=== PATIENT | female | born 1945 | race Asian ===

== ENCOUNTER → 2017-05-01 | Outpatient (CLI) | payer MEDICARE ==
[~2017-05-01] MED LIST: AMLO2.5T PO; ASPI-496 PO; ASPI-650 PO; CHOL100012 PO; FERR325T63; FOLI-17 PO; HYDR25TA6 PO; LOSA100T6 PO; METO50TA82 PO; OXYC-302 PO; POTA10TA11 PO; SIMV20TA3 PO; VALS320T2 PO
== END ==
LOC: CFH 13:31
PROVIDERS: ATTEND Internal Medicine
DX: Z12.31 Encounter for screening mammogram for malignant neoplasm of breast (principal)
CPT/HCPCS: 77063; G0202

== ENCOUNTER → 2020-07-27 | Outpatient (CLI) | payer MEDICARE ==
[~2020-07-27] MED LIST changes: -AMLO2.5T PO; +AMLO2.5T5 PO; +ASPI-1026 PO; -ASPI-650 PO; -FOLI-17 PO; +FOLI1TAB32 PO; +LOSA100T14 PO; -LOSA100T6 PO; -OXYC-302 PO; +OXYC1TAB14 PO; +SIMV20TA19 PO; -SIMV20TA3 PO
== END | disposition home or self-care (01) ==
LOC: CFH 13:56
PROVIDERS: ATTEND Internal Medicine Cardiovascular Disease
DX: I08.0 Rheumatic disorders of both mitral and aortic valves (principal)
CPT/HCPCS: 93306